=== PATIENT | female | born 1965 | race Caucasian/White ===

== ENCOUNTER 2016-07-22 20:22 | Emergency (ER) | payer SELFPAY ==
[2016-07-23] MEDS ORDERED: IBUPROFEN 600 MG TABLET PO ONE (01:58)
--- NOTE | 2016-07-23 02:14 | ER Document Report ---
ED Respiratory Problem - General Chief Complaint: Fever Stated Complaint: SHORTNESS OF BREATH Time seen by provider: 02:14 Mode of Arrival: Ambulatory Information source: Patient TRAVEL OUTSIDE OF THE [place] IN LAST 30 DAYS: No - HPI Patient complains to provider of: Cough Onset: Other - 2 days Duration: Worse/persistent Quality of pain: Achy Severity: Moderate Pain Level: 3 Short of Breath: Mild Cough: Productive Sputum amount: Small Sputum color: Green Sputum consistency: Mucoid Associated symptoms: Chills, Congestion, Cough, Fever Similar symptoms previously: No Recently seen / treated by doctor: No Notes: Patient is a 51-year-old female who is visiting her family from [place], who presents to the emergency room for complaints of cough, cold and congestion has been present for the past 2 days, cough is productive of greenish phlegm, she denies any sick contacts, reports body aches and generalized malaise, no vomiting or diarrhea - Related Data Allergies/Adverse Reactions: shellfish derived Allergy (Verified 07/22/16 21:56) Past Medical History - General Information source: Patient - Social History Smoking Status: Never Smoker Chew tobacco use (# tins/day): No Frequency of alcohol use: None Drug Abuse: None Family History: Reviewed & Not Pertinent Renal/ Medical History: Denies: Hx Peritoneal Dialysis - Immunizations Hx Diphtheria, Pertussis, Tetanus Vaccination: Yes Review of Systems - Review of Systems Constitutional: Fever EENT: See HPI Cardiovascular: No symptoms reported Respiratory: See HPI Gastrointestinal: No symptoms reported Genitourinary: No symptoms reported Female Genitourinary: No symptoms reported Musculoskeletal: See HPI Skin: No symptoms reported Hematologic/Lymphatic: No symptoms reported Neurological/Psychological: No symptoms reported -: Yes All other systems reviewed and negative Physical Exam - Vital signs Vitals: Temp Pulse Resp BP Pulse Ox 101.4 F H 116 H 17 150/83 H 99 07/22/16 21:25 07/22/16 21:25 07/22/16 21:25 07/22/16 21:25 07/22/16 21:25 Interpretation: Tachycardic, Febrile - General General appearance: Alert In distress: None - HEENT Head: Normocephalic, Atraumatic Eyes: Normal Conjunctiva: Normal Extraocular movements intact: Yes Eyelashes: Normal Pupils: PERRL Pharynx: Normal Neck: Normal - Respiratory Respiratory status: No respiratory distress Chest status: Nontender Breath sounds: Nonproductive cough Chest palpation: Normal - Cardiovascular Rhythm: Regular Heart sounds: Normal auscultation Murmur: No - Abdominal Inspection: Normal Distension: No distension Bowel sounds: Normal Tenderness: Nontender Organomegaly: No organomegaly - Back Back: Normal, Nontender - Extremities General upper extremity: Normal inspection, Nontender, Normal color, Normal ROM , Normal temperature General lower extremity: Normal inspection, Nontender, Normal color, Normal ROM , Normal temperature, Normal weight bearing. No: Norma's sign - Neurological Neuro grossly intact: Yes Cognition: Normal Orientation: AAOx4 [place] Coma Scale Eye Opening: Spontaneous [place] Coma Scale Verbal: Oriented [place] Coma Scale Motor: Obeys Commands [place] Coma Scale Total: 15 Speech: Normal Motor strength normal: LUE, RUE, LLE, RLE Sensory: Normal - Psychological Associated symptoms: Normal affect, Normal mood - Skin Skin Temperature: Warm Skin Moisture: Dry Skin Color: Normal Course - Re-evaluation Re-evalutation: 07/23/16 05:48 Patient with symptoms consistent with viral upper respiratory illness, chest x- ray shows no acute findings, he was provided with a cough suppressant medication and advised to follow-up with a primary care provider in 2-3 days or return if symptoms worsen, patient acknowledges understanding and agreement with this plan - Vital Signs Vital signs: Temp Pulse Resp BP Pulse Ox 99.0 F 94 17 114/53 L 97 07/23/16 03:33 07/23/16 03:33 07/23/16 03:33 07/23/16 03:33 07/23/16 03:33 - Diagnostic Test Radiology reviewed: Image reviewed, Reports reviewed Discharge - Discharge Clinical Impression: Viral upper respiratory illness Condition: Stable Disposition: HOME, SELF-CARE Instructions: Acetaminophen, Fever ([facility]), Upper Respiratory Illness ([facility]), Viral Syndrome ([facility]), Ibuprofen (General) ([facility]) Additional Instructions: Drink plenty of fluids. Tylenol or Motrin as needed for fever. Follow-up with your primary care provider in one to 2 days. Return to the emergency room immediately if symptoms worsen or any additional concerns. Prescriptions: Benzonatate [Tessalon Perle 100 mg Capsule] 100 mg PO Q8HP PRN #40 cap PRN Reason: Hydrocodone/Acetaminophen [Hydrocodon-Acetaminophen 5-325] 1 each PO Q6 #20 tablet
[2016-07-23 03:34] VITALS: BP 114/53
== END 2016-07-23 03:46 | disposition home or self-care (01) ==
LOC: ER 20:22
DX: J06.9 Acute upper respiratory infection, unspecified (principal); B97.89 Other viral agents as the cause of diseases classified elsewhere; R05 Cough; R50.9 Fever, unspecified; R00.0 Tachycardia, unspecified; R53.81 Other malaise; R52 Pain, unspecified; Z91.013 Allergy to seafood
CPT/HCPCS: 71020; 99283

== ENCOUNTER 2016-07-23 17:38 | Emergency (ER) | payer SELFPAY ==
--- NOTE | 2016-07-23 19:01 | ER Document Report ---
ED General - General Chief Complaint: Syncope Stated Complaint: SYNCOPE Notes: Patient is a 51-year-old woman who presents after an episode of syncope. States that she felt lightheaded and nauseated since waking up today and had had minimal oral intake last evening and today. She went to bend down to sit on the toilet became lightheaded and felt herself passing out. Family heard her hit the ground and found her face down on the floor. Patient woke up after approximatley 30 seconds with an immediate return to baseline. At time of my assessment she denies any additional complaints beyond feeling dehydrated. Denies any chest pain, shortness of breath, headache. States that she does have some mild neck pain after the fall which was worsened by moving her neck. Describes a dull, throbbing pain on the bilateral sides of the neck without any midline tenderness. Denies any weakness or numbness. She has tolerated oral intake since this episode. Has a history of similar symptoms in the past. She has not seen her primary care doctor regarding today's concerns. TRAVEL OUTSIDE OF THE [place] IN LAST 30 DAYS: No - Related Data Allergies/Adverse Reactions: shellfish derived Allergy (Verified 07/22/16 21:56) Past Medical History - General Information source: Patient - Social History Smoking Status: Never Smoker Frequency of alcohol use: None Drug Abuse: None Lives with: Family Family History: Reviewed & Not Pertinent Renal/ Medical History: Denies: Hx Peritoneal Dialysis Surgical Hx: Negative - Immunizations Hx Diphtheria, Pertussis, Tetanus Vaccination: Yes Review of Systems - Review of Systems Notes: Constitutional: Negative for fever. HENT: Negative for sore throat. Eyes: Negative for visual changes. Cardiovascular: Negative for chest pain. Respiratory: Negative for shortness of breath. Gastrointestinal: Negative for abdominal pain, vomiting or diarrhea. Genitourinary: Negative for dysuria. Musculoskeletal: Negative for back pain. Skin: Negative for rash. Neurological: Negative for headaches, weakness or numbness. 10 point ROS negative except as marked above and in HPI. Physical Exam - Vital signs Vitals: Resp Pulse Ox 22 H 95 07/23/16 17:53 07/23/16 17:53 RESPIRATORY RATES DOCUMENTED ARE NOT CORRECT. These were autopulled from the telemetry. Patient did not have any respiratory complaints today and was never tachypneic while in the emergency department. Interpretation: Normal Notes: PHYSICAL EXAMINATION: GENERAL: Well-appearing, well-nourished and in no acute distress. HEAD: Atraumatic, normocephalic. EYES: Pupils equal round and reactive to light, extraocular movements intact, sclera anicteric, conjunctiva are normal. ENT: nares patent, oropharynx clear without exudates. Dry mucous membranes. NECK: Normal range of motion, supple without lymphadenopathy LUNGS: Breath sounds clear to auscultation bilaterally and equal. No wheezes rales or rhonchi. HEART: Regular rate and rhythm without murmurs ABDOMEN: Soft, nontender, normoactive bowel sounds. No guarding, no rebound. No masses appreciated. EXTREMITIES: Normal range of motion, no pitting or edema. No cyanosis. NEUROLOGICAL: No focal neurological deficits. Moves all extremities spontaneously and on command. PSYCH: Normal mood, normal affect. SKIN: Warm, Dry, normal turgor, no rashes or lesions noted. Course - Re-evaluation Re-evalutation: 07/23/16 19:00 Presentation of syncope of unclear etiology. Patient normotensive, alert, without focal neurologic deficits at time of arrival. Denies syncope was during exertion. No preceding symptoms of palpitations, chest pain, or shortness of breath. Patient asymptomatic at time of arrival. EKG is without evidence of HCOM , right heart strain, ST changes to suggest ischemia, prolong QTc, delta wave, epsilon wave, or Brugada syndrome. Patient denies any family history of sudden cardiac , personal history of of structural heart disease. Patient denies any symptoms to suggest an acute PE, DC, TAD, SAH, seizure, or acute GI bleed as the etiology of their syncope today. On exam, no murmurs to suggest critical aortic stenosis as possible etiology. Patient did also complain of some neck pain after the fall. She was evaluated by NEXUS criteria and found to be negative. Patient is also negative by [place] C-spine criteria. No clinical evidence to suggest increased risk of cervical spine fracture. No indication for further imaging of the cervical spine this point. Based on overall clinical history, exam findings, vitals, and patients appearance, I feel it is safe for patient to be discharged home at this time with close outpatient follow -up and strict return precautions. Patient is in agreement with this plan, has verbalized indications for return to ED, and questions have been answered. - Vital Signs Vital signs: Temp Pulse Resp BP Pulse Ox 28 H 143/80 H 96 07/23/16 19:01 07/23/16 19:00 07/23/16 18:01 - EKG Interpretation by Me Additional EKG results interpreted by me: 07/23/16 19:00 Sinus rhythm. Rate 77. No ST elevations or depressions. T-wave inversions in V2 through 4. QTC is 417 Discharge - Discharge Clinical Impression: Syncope Qualifiers: Syncope type: unspecified Qualified Code(s): R55 - Syncope and collapse Condition: Good Disposition: HOME, SELF-CARE Additional Instructions: You were seen today after an episode of passing out. Your EKG here is normal. At this time, we do not feel that your episode of passing out was from any life- threatening cause. Please drink plenty of fluids over the next several days. Return to emergency department if you have any further episodes of syncope, headache, weakness, numbness, chest pain, or shortness of breath. Please follow up closely with your primary care physician.
[2016-07-23 19:19] VITALS: BP 143/80
--- NOTE | 2016-07-23 20:32 | EKG REPORT ---
SEVERITY:- ABNORMAL ECG - SINUS OR ECTOPIC ATRIAL RHYTHM NONSPECIFIC INTRAVENTRICULAR CONDUCTION DELAY PROBABLE LVH WITH SECONDARY REPOL ABNRM LATERAL INFARCT, AGE INDETERMINATE : Confirmed by: Rebeca Joseph MD 23-Jul-2016 20:32:06
== END 2016-07-23 19:23 | disposition home or self-care (01) ==
LOC: ER 17:38
DX: R55 Syncope and collapse (principal); R42 Dizziness and giddiness; R11.0 Nausea; M54.2 Cervicalgia
CPT/HCPCS: 93005; 93010; 99284